=== PATIENT | female | born 1970 ===

== ENCOUNTER 2020-07-11 08:23 | Day surgery (SDC) | payer OTHER | END 2020-07-11 19:50 | disposition home or self-care (01) | LOC: CIR.AMB 08:23 | PROVIDERS: ATTEND Urology | DX: N13.2 Hydronephrosis with renal and ureteral calculous obstruction (principal); Z20.822 Contact with and (suspected) exposure to COVID-19 ==

== ENCOUNTER 2020-08-08 07:40 | Day surgery (SDC) | payer OTHER | END 2020-08-08 17:45 | disposition home or self-care (01) | LOC: CIR.AMB 07:40 | PROVIDERS: ATTEND Urology | DX: N13.1 Hydronephrosis with ureteral stricture, not elsewhere classified (principal); N13.2 Hydronephrosis with renal and ureteral calculous obstruction; Z20.822 Contact with and (suspected) exposure to COVID-19 ==